=== PATIENT | female | born 2000 | race Caucasian/White ===

== ENCOUNTER 2021-11-29 16:34 | Emergency (ER) | payer BC, SELFPAY ==
[2021-11-29 17:16] VITALS: BP 104/69; PULSE 94; RESP 16; TEMP 36.8; O2SAT 99; BMI 18.8
[2021-11-29] MEDS: lidocaine HCL 2 % MULTIDOSE 20 ML VIAL INJECTION (19:35)
--- NOTE | 2021-11-29 19:41 | ED.GENADULT ---
HPI - General Adult General Chief complaint: Unspecified Complaint, Adult Stated complaint: Dog Bite Time Seen by Provider: 11/29/21 19:19 Source: patient Mode of arrival: ambulatory Limitations: no limitations History of Present Illness HPI narrative: 21-year-old female coming in today status post dog bite to the left ankle. She was dog sitting, the next door neighbor's dog jumped the fence and tried to attack the other dog. She got that dog inside the house but he did her ankle instead. Dog's immunizations are up-to-date according to the agency owner. Denies any other injury. Last tetanus was updated in 2010. Related Data Previous Rx's Medication Instructions Recorded amoxicillin 875 mg-potassium 1 tab PO BID 7 days #14 tabs 11/29/21 clavulanate 125 mg tablet Review of Systems Status of ROS: Reports: 6 or more systems reviewed and unremarkable except as noted in History and below Exam Narrative: Exam Narrative: Well-nourished well-developed patient in no acute distress. Alert and oriented. Answers questions appropriately. Mood and affect are appropriate. Thoughts are goal oriented and rational. No tangential or magical thinking noted. Patient speaks in full sentences without needing to catch their breath. HEENT: Normocephalic atraumatic. Pupils are equally round reactive to light. Extraocular muscles are intact. Conjunctivae are moist without any icterus noted. Extremities: Bilateral lower extremities are without edema. Normal DP and PT pulses. Left lower extremities has 2 lacerations to the ankle: 1 lateral and posterior. Both are approximately 1 cm in length and penetrate through the skin into the subcutaneous tissue, skin is gaping open. Skin: Well perfused without any obvious rashes. Const: Vital Signs, click to edit/add: Vital Signs - 24 hr 11/29/21 17:16 Temperature 98.2 F Pulse Rate [Pulse Oximeter] 94 Respiratory Rate 16 Blood Pressure [Le ft Upper Arm] 104/69 Pulse Oximetry 99 Oxygen Delivery Me thod Room Air Course Course Hospital Course: We discussed when he was secondary intention although she will have relatively large scars. I do recommend just putting 1 suture in each laceration hold the skin together a little bit better while still allowing the wound to drain as needed. Patient wished to proceed with the 2nd option. Areas were cleaned with wound cleanser and then anesthetized with lidocaine. One suture with 3-0 Ethilon was placed in both lacerations. Vital Signs Vital signs: Initial Vital Signs Temperature 98.2 F 11/29/21 17:16 Temperature Source Temporal Artery Scan 11/29/21 17:16 Pulse Rate 94 11/29/21 17:16 Pulse Rhythm 11/29/21 17:16 Respiratory Rate 16 11/29/21 17:16 Blood Pressure 104/69 11/29/21 17:16 Blood Pressure Mean 80 11/29/21 17:16 Blood Pressure Position Sitting 11/29/21 17:16 Pulse Oximetry 99 11/29/21 17:16 Oxygen Delivery Method 11/29/21 17:16 Vital Signs Temperature 98.2 F 11/29/21 17:16 Pulse Rate 94 11/29/21 17:16 Respiratory Rate 16 11/29/21 17:16 Blood Pressure 104/69 11/29/21 17:16 Pulse Oximetry 99 11/29/21 17:16 Oxygen Delivery Method 11/29/21 17:16 Temperature 98.2 F 11/29/21 17:16 Pulse Rate 94 11/29/21 17:16 Respiratory Rate 16 11/29/21 17:16 Blood Pressure 104/69 11/29/21 17:16 Pulse Oximetry 99 11/29/21 17:16 Oxygen Delivery Method 11/29/21 17:16 Medical Decision Making MDM Narrative Medical decision making narrative: 21-year-old female dog bite to lower extremity treated per above. We discussed wound hygiene, signs and symptoms of infection. Patient will be placed on an antibiotic given the depth of each bite. A tetanus shot was updated today. Suture removal in 5-7 days. Discharge Plan Discharge Clinical Impression: Dog bite Patient Disposition: Home, Self-Care Condition: Improved Additional Instructions: Keep wounds clean and dry. Okay to shower like you normally would but do not soak them such as bathing or swimming. Keep wounds covered until they are no longer draining. Watch for signs of infection which include redness that spreads around the laceration. See your doctor right away if this occurs. This should be unlikely as you will be placed on antibiotic-take all antibiotics as prescribed. Prescriptions: New amoxicillin-pot clavulanate 875-125 mg tablet 1 tab PO BID 7 Days Qty: 14 0RF Follow Up/Referrals: Antonia Fisher MD [Primary Care Provider] - Stand Alone Forms: [facility] Info Inst[facility]
--- NOTE | 2021-11-29 19:58 | ED.NURSE ---
[facility]'s office notified of bite. LE to contact Pt, Pt aware.
[2021-11-29] MEDS: TETANUS/DIPHTH/PERTUSSIS 0.5 ML SYRINGE IM (20:01)
[2021-11-29 20:09] VITALS: BP 104/69; PULSE 94; RESP 16; TEMP 36.8
== END 2021-11-29 20:23 | disposition home or self-care (01) ==
LOC: ED 19:52
PROVIDERS: Emergency Provider Family Medicine; PCP Physician Assistant Medical
DX: S91.052A Open bite, left ankle, initial encounter (principal); W54.0XXA Bitten by dog, initial encounter
CPT/HCPCS: 12001; 90471; 90715; 99283; 99284